=== PATIENT | male | born 2005 ===

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

== ENCOUNTER 2024-03-16 21:02 | Emergency (ER) | payer BC, OTHER ==
[~2024-03-16] VITALS: Ht 172.7 cm; Wt 79.4 kg
[~2024-03-16 21:02] MED LIST: ALBENDAZOLE200 MG PO
[2024-03-16 21:25] VITALS: BP 143/78
[2024-03-16] MEDS ORDERED: ALBENDAZOLE200 MG PO (21:29)
== END 2024-03-16 21:47 | disposition home or self-care (01) ==
LOC: ER 21:02
DX: B80 Enterobiasis (principal); Z79.899 Other long term (current) drug therapy
CPT/HCPCS: 99282